=== PATIENT | male | born 1960 | race Caucasian/White ===

== ENCOUNTER → 2023-02-06 | Outpatient (CLI) | payer BC, SELFPAY ==
--- NOTE | 2023-02-06 14:05 | RAD_ITS ---
PROCEDURE: Fluoroscopic guided Hip Injection DATE: February 06, 2023. INDICATION: Male, 62 years old. Chronic right hip pain. PHYSICIAN: Max Bass M.D. MEDICATIONS: 6 mg of betamethasone and 3 cc of 1% lidocaine. 2% Lidocaine administered subcutaneously for local anesthesia. ACCESS SITE: Right hip. NEEDLE: 22-gauge spinal needle. FLUOROSCOPY TIME (if supplied): (0:31) minutes/seconds. 13.13 mGy. One image was submitted. FINDINGS: The risks, benefits, and alternatives to the procedure were explained to the patient. The specific risks of bleeding, infection, and neurovascular injury were detailed and accepted. Witnessed informed consent was obtained. A 22-gauge spinal needle was positioned under radiographic fluoroscopic localization. Approximately 2 cc of Isovue-300 instilled for localization purposes. Medication was then injected. The patient tolerated the procedure well without any immediate complications. RAD/Inj/Asp Phil Jt Should/Hip/Knee IMPRESSION: 1. Successful fluoroscopic guided hip injection. Electronically Signed: Max Bass MD at 15:18 EDT ,
[2023-02-06] MEDS: Lidocaine 2% (5ml sdv) 5 ML VIAL.MPF INFILT (14:39)
[2023-02-06] MEDS: Lidocaine 1% (5 ml sdv) 5 ML Vial OPERA.SITE (14:41)
[2023-02-06] MEDS: Betamethasone/Betamethasone 30 MG/5 ML Vial 6 MG INTRAARTIC (14:41)
== END | disposition home or self-care (01) ==
LOC: RAD 13:57
PROVIDERS: Visit Provider Physician Assistant
DX: M16.11 Unilateral primary osteoarthritis, right hip (principal)
CPT/HCPCS: 20610; 77002; Q9967; J0702